=== PATIENT | male | born 1940 | race Caucasian/White ===

== ENCOUNTER 2016-10-15 20:20 | Inpatient (IN) | payer OTHER ==
[~2016-10-15] VITALS: Ht 157.5 cm; Wt 80.0 kg
[~2016-10-15 20:20] MED LIST: AMLODIPINE BESY10 MG PO; ASPIR-LOW81 MG PO; ASPIRIN325 MG PO; CINNAMON500 MG PO; CLOPIDOGREL75 MG PO; COZAAR100 MG PO; DOXAZOSIN MESYLA4 MG PO; FISH OIL 1,2001 EAC4 PO; METAGLIP 5/51 TABLET PO; NORVASC5 MG PO; NOVOLOG PE100 UNITS/ SC; PRAVASTATIN SOD40 MG PO; RANITIDINE HCL150 MG PO; TRESIBA FL100 UNIT/1 SC; TRICOR145 MG PO; VITAMIN C1000 MG PO; VITAMIN E400 UNIT PO
[2016-10-15 20:42] LABS: HEMATOCRIT 42.8 % (38.0-50.0); MCH 30.8 PG (29.0-34.0); MCHC 34.3 G/DL (30.0-36.0); MCV 89.5 FL (86-99); MEAN PLAT.VOLUME 10.5 uM^3 (9.0-12.4); PLATELET COUNT 222 K/uL (156-360); RBC DIS.WIDTH-CV 13.7 % (11.8-14.6); RBC DIS.WIDTH-SD 44.1 % (39-53); RED BLOOD COUNT 4.78 M/uL (4.00-5.50); WHITE BLOOD COUNT 10.8 K/uL (4.1-10.2)
[2016-10-15 20:51] LABS: CHLORIDE 103 mEq/L (99-109); POTASSIUM 4.8 mEq/L (3.7-5.4); SODIUM 138 mEq/L (136-147)
[2016-10-15 20:52] LABS: GLUCOSE 286 mg/dL (70-99)
[2016-10-15 20:54] LABS: ANION GAP 10 MEQ/L (2-14)
[2016-10-15 20:56] LABS: GFR ESTIMATE (CALCULATED) 29 mL/min/
[2016-10-15 20:57] LABS: UREA NITROGEN (BUN) 29 mg/dL (9-23)
[2016-10-15 22:00] LABS: ADD MIUA? YES; BILIRUBIN NEGATIVE; BLOOD SMALL; COLOR YELLOW ((YELLOW)); GLUCOSE (STRIP) 500; KETONES NEGATIVE; LEUKOCYTES NEGATIVE; NITRITE NEGATIVE; PROTEIN (STRIP) 30; SPECIFIC GRAVITY 1.025 (1.000-1.030); UROBILINOGEN 0.2 MG/DL (0.2-1.0)
[2016-10-15 22:06] VITALS: BP 186/104
[2016-10-15 22:16] LABS: RED BLOOD CELLS 15-20 /HPF (0-5); WHITE BLOOD CELLS NONE SEEN /HPF (0-5)
[2016-10-15 22:17] LABS: BACTERIA NONE SEEN /HPF; CASTS NONE SEEN /LPF; CRYSTALS NONE SEEN; EPITHELIAL CELLS RARE /HPF; MUCUS RARE /LPF; UCUL ADDED? NO
[2016-10-15 22:35] VITALS: BP 176/94
[2016-10-15 23:04] VITALS: BP 159/91
[2016-10-15 23:33] VITALS: BP 172/101
[2016-10-16] VITALS (7 sets, daily range): BP systolic 146–177; BP diastolic 79–98
[2016-10-16 01:48] LABS: POINT-OF-CARE METER ID UU14100415
[2016-10-16 05:56] LABS: POINT-OF-CARE METER ID UU13113725
[2016-10-16 07:38] LABS: ANION GAP 11 MEQ/L (2-14); CHLORIDE 107 MEQ/L (99-109); GFR ESTIMATE (CALCULATED) 35 mL/min/; GLUCOSE 182 mg/dL (70-99); POTASSIUM 4.3 MEQ/L (3.7-5.4); SAMPLE HEMOLYSIS CHECK 0; SAMPLE ICTERIC CHECK 0; SAMPLE LIPEMIA CHECK 0; SODIUM 140 MEQ/L (136-147); UREA NITROGEN (BUN) 27 mg/dL (9-23)
[2016-10-16 16:30] LABS: POINT-OF-CARE METER ID UU13113675
[2016-10-17 06:48] LABS: EOSINOPHIL (%) 5.9 % (0-5); EOSINOPHIL COUNT 0.3 K/uL (0-0.3); HEMATOCRIT 39.7 % (38.0-50.0); IMMATURE GRANULOCYTE (%) 0.2 % (0.0-0.7); LYMPHOCYTE COUNT 1.7 K/uL (1.0-2.8); MCV 90.8 FL (86-99); MEAN PLAT.VOLUME 11.1 uM^3 (9.0-12.4); MONOCYTE (%) 12.2 % (3-12); MONOCYTE COUNT 0.7 K/uL (0-0.8); NEUTROPHIL (%) 50.9 % (45-76); NEUTROPHIL COUNT 2.9 K/uL (1.8-6.4); PLATELET COUNT 194 K/uL (156-360); RBC DIS.WIDTH-CV 13.7 % (11.8-14.6); RBC DIS.WIDTH-SD 45.7 % (39-53); RED BLOOD COUNT 4.37 M/uL (4.00-5.50)
[2016-10-17 06:52] LABS: WHITE BLOOD COUNT 5.7 K/uL (4.1-10.2)
[2016-10-17 06:58] LABS: ANION GAP 7 MEQ/L (2-14); CHLORIDE 108 MEQ/L (99-109); GFR ESTIMATE (CALCULATED) 57 mL/min/; GLUCOSE 143 mg/dL (70-99); POTASSIUM 4.4 MEQ/L (3.7-5.4); SAMPLE HEMOLYSIS CHECK 0; SAMPLE ICTERIC CHECK 0; SAMPLE LIPEMIA CHECK 0; SODIUM 140 MEQ/L (136-147); UREA NITROGEN (BUN) 20 mg/dL (9-23)
[2016-10-17 08:11] VITALS: BP 161/89
[2016-10-17] MEDS ORDERED: CEFTIN500 MG PO (11:30)
[2016-10-17] MEDS ORDERED: PERCOCET 5/31 TABLET PO (11:30)
[2016-10-17 11:37] LABS: POINT-OF-CARE METER ID UU13113725
== END 2016-10-17 13:20 | disposition home or self-care (01) | DRG 690 ==
LOC: EME 20:20 → EDOF 10-16 00:48 → 5EAST 10-16 00:48
PROVIDERS: Hospitalist; Internal Medicine
DX: N13.6 Pyonephrosis (principal); I10 Essential (primary) hypertension; N17.9 Acute kidney failure, unspecified; E11.9 Type 2 diabetes mellitus without complications; E78.5 Hyperlipidemia, unspecified; G47.33 Obstructive sleep apnea (adult) (pediatric); E66.9 Obesity, unspecified; R79.89 Other specified abnormal findings of blood chemistry; N40.0 Benign prostatic hyperplasia without lower urinary tract symptoms; E78.00 Pure hypercholesterolemia, unspecified; Z68.32 Body mass index [BMI] 32.0-32.9, adult; Z90.49 Acquired absence of other specified parts of digestive tract; Z86.73 Personal history of transient ischemic attack (TIA), and cerebral infarction without residual deficits; Z79.4 Long term (current) use of insulin; Z88.5 Allergy status to narcotic agent; Z83.3 Family history of diabetes mellitus; Z82.49 Family history of ischemic heart disease and other diseases of the circulatory system; Z82.3 Family history of stroke
CPT/HCPCS: 74176; 80048; 81003; 82009; 82948; 83735; 85025; 85027; 87040; 99281; 99285; C1758; J0696; J1644; J1815; J2405; J3010; J7030; J7050